=== PATIENT | male | born 1970 | race Caucasian/White ===

== ENCOUNTER → 2019-12-30 | Emergency (ER) | payer SELFPAY | LOC: BURERS 14:36 | DX: Z53.21 Procedure and treatment not carried out due to patient leaving prior to being seen by health care provider (principal) ==

== ENCOUNTER 2023-11-28 11:47 | Emergency (ER) | payer OTHER, SELFPAY ==
[2023-11-28] MEDS ORDERED: Nitroglycerin 0.4 MG TAB 1 EACH ONE (11:55)
[2023-11-28] MEDS ORDERED: Aspirin Chewable 81 MG TAB ONE (11:56)
[2023-11-28 12:35] LABS: #Basophils 0.1 thou/uL (0.0-0.2); #Eosinphils 0.4 thou/uL (0.0-0.7); #Lymphocytes 2.1 thou/uL (1.20-3.40); #Monocytes 0.7 thou/uL (0.11-0.59); #Neutrophils 9.6 thou/uL (1.40-6.50); %Basophils 0.9 % (0.0-1.0); %Eosinophils 3.4 % (0.0-10.0); %Lymphocytes 16.1 % (21.0-51.0); %Monocytes 5.4 % (0.0-10.0); %Neutrophils 74.2 % (42.0-75.0); Hematocrit 43.6 % (42.0-52.0); Hemoglobin 14.6 g/dL (14.0-18.0); Mean Corpuscular HGB CONC 33.4 g/dL (32.0-36.0); Mean Corpuscular Hemoglobin 29.1 pg (27.0-31.0); Mean Corpuscular Volume 87.2 fl (78.0-98.0); Mean Platelet Volume 7.3 fL (7.4-10.4); Platelet Count 255 10x3/uL (130-400); RBC Distribution Width 11.9 % (11.5-14.5); White Blood Cell (WBC) Count 12.9 10x3/uL (4.8-10.8)
[2023-11-28 12:47] LABS: ALT (SGPT) 17 U/L (8-55); AST (SGOT) 19 U/L (5-34); Albumin 4.3 g/dL (3.5-5.0); Alkaline Phosphatase 71 U/L (40-110); Anion Gap 16 mmol/L (10-20); BUN (Urea Nitrogen) 11 mg/dL (8.4-25.7); Bilirubin, Total 0.4 mg/dL (0.2-1.2); Calc. Creatinine Clearance 0 mL/min (70-130); Calcium 9.4 mg/dL (7.8-10.44); Carbon Dioxide 23 mmol/L (22-29); Chloride 100 mmol/L (98-107); Estimated GFR 97; Globulin 3.1 g/dL (2.4-3.5); Glucose 132 mg/dL (70-105); Lipase 8 U/L (8-78); Potassium 3.7 mmol/L (3.5-5.1); Protein, Total 7.4 g/dL (6.0-8.3); Sodium 135 mmol/L (136-145)
[2023-11-28 12:51] LABS: Troponin I 0.968 ng/mL (< 0.028)
[2023-11-28] MEDS ORDERED: Heparin 10,000 UNITS/ 10 ML VIAL ONE (13:58)
[2023-11-28] MEDS ORDERED: Heparin 25,000 units/D5W 500 ML ONE (13:58)
[2023-11-28 16:37] LABS: Troponin I 3.321 ng/mL (< 0.028)
== END 2023-11-28 17:03 | disposition short-term general hospital (02) ==
LOC: BURERS 11:47 → EEVIPCON 11:47 → BURERS 17:03
DX: I21.4 Non-ST elevation (NSTEMI) myocardial infarction (principal); Z87.891 Personal history of nicotine dependence
CPT/HCPCS: 36415; 71045; 80053; 83690; 84484; 85025; 85730; 93005; 94760; 96365; 96366; J1644